=== PATIENT | male | born 1980 | race African-American/Black ===

== ENCOUNTER 2020-08-25 00:29 | Outpatient (CLI) | payer OTHER, SELFPAY ==
[2020-08-25 17:37] LABS: SARS-CoV-2 RNA PCR Negative
== END 2020-08-25 00:30 | disposition home or self-care (01) ==
LOC: ANHCOVIDDT 00:29
PROVIDERS: Visit Provider Internal Medicine Gastroenterology
DX: Z01.812 Encounter for preprocedural laboratory examination (principal); Z20.828 Contact with and (suspected) exposure to other viral communicable diseases
CPT/HCPCS: 87635; C9803; U0003

== ENCOUNTER 2020-08-28 00:17 | Day surgery (SDC) | payer OTHER, SELFPAY ==
[2020-07-26 14:41] VITALS: BMI 25.9
[2020-08-21 15:01] VITALS: BMI 25.9
[2020-08-28 09:42] VITALS: BP 117/75; PULSE 51; RESP 16; TEMP 36.9; O2SAT 100; BMI 25.5
[2020-08-28] MEDS: LACTATED RINGERS 1,000 ML 150 ML IV CONT (09:50)
--- NOTE | 2020-08-28 10:27 | WPDANESEPPF ---
Anes - Initial Pre Proc Eval Procedure: Operation Date: 08/28/20 10:45 Proposed Procedures p Esophagogastroduodenoscopy - Dru Alfaro MD Date/Time: 08/28/20 10:27 Surgeon: Dru Alfaro MD Pre Op Diagnosis: abdominal pain Patient Data Age: 40 Gender: M Height: 5 ft 10 in Weight: 80.8 kg Last Vital Signs Temp 36.9 C 08/28/20 09:42 Pulse 51 L 08/28/20 09:42 Resp 16 08/28/20 09:42 BP 117/75 08/28/20 09:42 Pulse Ox 100 08/28/20 09:42 Allergies Allergy/AdvReac Type Severity Reaction Status Date / Time No Known Allergies Allergy Unverified 08/28/20 09:40 Home Medications Medication Instructions Recorded Confirmed Type omeprazole 40 mg capsule,delayed 40 mg PO DAILY #30 cap 06/18/20 07/26/20 Rx release Patient hx anesthesia problems: none Family hx anesthesia problems: none [facility] Past Medical History Medical History Dyspepsia Social History Social History Years smoked: 1 Smoking status: Current every day smoker Tobacco type: cigars Alcohol intake: current Alcohol use details: 5 DRINKS PER YEAR Substance use: never Substance use type: does not use Living arrangements: with family Gender identity (if verbalized by the patient): Male Spiritual care concerns: No Anes - Eval Final PreProcedure Day of Procedure 08/28/20 10:27 Patient weight: normal Heart: regular rate and rhythm Lungs: clear to auscultation Airway: Mallampati scale class 1 Neurological: alert and oriented Last oral intake: >/= 8 hours ASA classification: II Emergent: no Anesthetic plan: proceed Anesthesia type and monitoring: general GIVS and standard monitoring Informed Consent: The patient's anesthetic plan and its attendant risks and benefits were discussed with the patient/family/POA. Questions were solicited and answers provided to the satisfaction of the patient/family/POA.
--- NOTE | 2020-08-28 10:32 | PM.HPGS ---
History of Present Illness History of Present Illness Consent: Risks, benefits, and alternatives have been discussed and questions answered. Patient agrees to proceed with procedure. Chief complaint: abdominal pain Narrative: Tanner Long is a 40 year old male with epigastric pain, took omeprazole that helped with symptoms, not longer on medication Review of Systems Constitutional: Constitutional: Denies headache(s) and Denies weakness Eyes: Eyes: Denies blurry vision ENT: Reports Normal hearing present, Denies headache(s) and Denies neck pain Cardiovascular: Cardiovascular: Denies chest pain and Denies dyspnea Respiratory: Respiratory: Denies dyspnea Gastrointestinal: Gastrointestinal: Reports no additional gastrointestinal complaints Genitourinary: Genitourinary: Denies dysuria Musculoskeletal: Musculoskeletal: Denies neck pain Integumentary/Breasts: Skin/Breast: Denies dry skin Neurologic: Reports Normal hearing present, Denies headache(s) and Denies weakness Psychiatric: Psychiatric: Denies anxiety Endocrine: Endocrine: Denies change in body appearance Hematologic/Lymphatic: Hematologic/Lymphatic: Denies easy bleeding Allergic/Immunologic: Allergic/Immunologic: Denies urticaria PMFSH Past Medical History Medical History Dyspepsia Social History Social History Years smoked: 1 Smoking status: Current every day smoker Tobacco type: cigars Alcohol intake: current Alcohol use details: 5 DRINKS PER YEAR Substance use: never Substance use type: does not use Living arrangements: with family Gender identity (if verbalized by the patient): Male Spiritual care concerns: No Meds Home Medications and Allergies Home Medications Medication Instructions Recorded Confirmed Type omeprazole 40 mg capsule,delayed 40 mg PO DAILY #30 cap 06/18/20 07/26/20 Rx release Allergies Allergy/AdvReac Type Severity Reaction Status Date / Time No Known Allergies Allergy Unverified 08/28/20 09:40 Vital Signs Vital Signs - 24 hr 08/28/20 09:42 Temperature 98.5 F Pulse Rate 51 L Respiratory Rate 16 Blood Pressure 117/75 Pulse Oximetry 100 Exam Const: General: comfortable and no acute distress HENMT: General nose exam: Normal nares present Eyes: General: appearance normal, both eyes and all related structures Neck: Neck: no JVD Resp: Auscultation: clear to auscultation bilaterally Cardio: Rate: regular rate Rhythm: regular rhythm GI: Inspection: non-distended GI Palp: Yes Soft to palpation Skin: General skin exam: normal color Neuro: General: gait normal Speech: normal speech Extrem: General: normal to inspection Psych: Mental Status: mental status grossly normal Assessment and Plan Assessment and plan (1) Dyspepsia: Code(s): R10.13 - Epigastric pain Status: Acute Assessment and Plan: egd with bx
[2020-08-28 10:50] VITALS: BP 116/69; PULSE 60; RESP 18; O2SAT 98
[2020-08-28 11:00] VITALS: BP 106/70; PULSE 46; RESP 18; O2SAT 96
[2020-08-28 11:10] VITALS: BP 107/68; PULSE 50; RESP 18; O2SAT 96
[2020-08-28 11:20] VITALS: BP 120/73; PULSE 58; RESP 18; O2SAT 96
== END 2020-08-28 11:39 | disposition home or self-care (01) ==
PROVIDERS: Visit Provider Internal Medicine Gastroenterology
PROC: 0DJ08ZZ Inspection of Upper Intestinal Tract, Via Natural or Artificial Opening Endoscopic (ICD-10-PCS; CPT 43235; principal; 2020-08-28 10:45)
DX: K21.00 Gastro-esophageal reflux disease with esophagitis, without bleeding (principal); K29.50 Unspecified chronic gastritis without bleeding; B96.81 Helicobacter pylori [H. pylori] as the cause of diseases classified elsewhere; K29.80 Duodenitis without bleeding; F17.210 Nicotine dependence, cigarettes, uncomplicated
CPT/HCPCS: 43239; 87081; 88305; 88342; J2704; J7120

== ENCOUNTER 2024-03-22 12:38 | Outpatient (CLI) | payer BC, SELFPAY ==
--- NOTE | ~2024-03-22 | MR_ITS ---
EXAMINATION: XR fl inj elbow RT for MR/CT DATE: 03/22/2024 13:29 INDICATION: Right elbow pain TECHNIQUE: Magnetic resonance (MR) arthrogram of the right elbow was performed with intra-articular c ontrast but without intravenous contrast. Details of the contrast mixture and joint injection have b een dictated separately. Sequences included axial T1-weighted FS FSE, axial T2-weighted FS FSE, coron al T1-weighted FS FSE, coronal T2-weighted FS FSE, sagittal T1-weighted FS FSE, sagittal T2-weighted FSE and sagittal T2-weighted FS FSE. COMPARISON: None FINDINGS: Osseous/other: Normal alignment. Normal marrow signal with no marrow edema, fracture, osteochondral lesion or patho logic marrow replacing process. Osteoarthritis at the right elbow with nonuniform joint space narrowi ng with partial thickness cartilage loss and moderate size marginal osteophytes. The cartilage loss i s greatest in the ulnotrochlear articulation which includes small region of full/near full-thickness cartilage loss with subarticular edema-like signal change at the posterior margin of the trochlear ar ticular surface. There is additional cartilage loss greater than 50% the cartilage thickness at the r adial articular surface at the proximal radioulnar articulation. Osteophytes at the coronoid and olec ranon fossae of the distal humerus which likely results in some decrease in the range of motion with flexion and extension. Tendons: Triceps, biceps brachii and brachialis tendons are normal. Common flexor tendon wad is normal. The c ommon extensor tendon wad is normal. Ligaments: The medial and lateral collateral ligament complexes are normal. Cubital tunnel: Cubital tunnel is unremarkable with normal signal and caliber of the ulnar nerve. Fluid: There is an 11 x 7 x 5 mm likely loose osteochondral body in the recess posterior to the radiocapitel lar articulation. IMPRESSION: 1. Moderate osteoarthritis at the right elbow most prominent at the ulnotrochlear and proximal radiou lnar articulations. 2. Moderate-sized marginal osteophytes including at the coronoid and olecranon fossae which likely mi ldly decreased available range of motion with flexion and extension. Reviewed, dictated and finalized at location B. IMPRESSION: 1. 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 2. Moderate-sized marginal osteophytes including at the coronoid and olecranon fossae which likely mildly decreased available range of motion with flexion and extension.
--- NOTE | ~2024-03-22 | XR_ITS ---
EXAMINATION: XR fl inj elbow RT for MR/CT DATE: 03/22/2024 13:29 INDICATION: Right elbow pain TECHNIQUE: A time-out was performed to verify the patient's name, date of , and procedure to b e performed. The procedure including the risks, benefits, and alternatives was discussed with the pat ient. Risks discussed included bleeding and infection. The patient understood the risks and agreed to proceed. The skin overlying the lateral right elbow joint was prepped and draped in usual sterile f ashion. Anesthetic was administered with 1% lidocaine subcutaneously. A 25 G needle was advanced un loretta fluoroscopic guidance into the joint. Injection of 0.1 mL of Omnipaque 240 confirmed intra-artic ular position of the needle. Subsequently, injectate consisting of 10 mL of 2:1:1 mixture of sterile saline:Omnipaque 240:1% lidocaine mixed 200:1 with 529 mg/mL Multihance gadolinium contrast was inje cted with intra-articular administration confirmed with intermittent fluoroscopy. The needle was toshia zachary and the entry site was cleaned and dressed. There were no immediate complications. Fluoroscopy e xposure time was 0.2 minutes. The total number of images was 8. Total DAP was 0.171 Gycm^2 FINDINGS: Real-time fluoroscopy demonstrates the needle in the right elbow joint. IMPRESSION: 1. Successful right elbow joint injection of dilute gadolinium contrast mixture for subsequent MRI ar throgram which will be dictated separately. Reviewed, dictated and finalized at location B. IMPRESSION: 1. Successful right elbow joint injection of dilute gadolinium contrast mixture for subsequent MRI arthrogram which will be dictated separately.
== END 2024-03-22 12:39 ==
LOC: MICIMG 03-25 07:35
PROVIDERS: PCP Physician Assistant; Visit Provider Physician Assistant
DX: M19.021 Primary osteoarthritis, right elbow (principal)
CPT/HCPCS: 20605; 73222; 77002; A9577; Q9967